=== PATIENT | male | born 1965 | race Caucasian/White ===

== ENCOUNTER 2023-12-04 19:59 | Emergency (ER) | payer BC, SELFPAY ==
[2023-12-04 20:03] VITALS: BP 145/87; PULSE 104; RESP 22; TEMP 36.8; O2SAT 100
[2023-12-04 20:30] LABS: Basophils Percent Auto 0.2 % (0.2-1.2); Eosinophils Absolute Auto 0.3 K/mm3 (0-0.3); Hematocrit 48.1 % (42.0-52.0); Hemoglobin 16.3 g/dL (14.0-18.0); Immature Granulocyte Absolute 0.01 K/mm3 (0.00-0.031); Immature Granulocyte Percent A 0.2 % (0-0.5); Lymphocytes Absolute Auto 1.35 K/mm3 (0.9-3.2); Mean Corpuscular HGB Conc 33.9 g/dl (32-36); Mean Corpuscular Hemoglobin 30.2 pg (26-34); Mean Corpuscular Volume 89.2 fl (80-100); Mean Platelet Volume 9.4 fl (7.4-10.4); Monocytes Absolute Auto 0.8 K/mm3 (0.1-0.6); Monocytes Percent Auto 13.2 % (2.6-8.5); Neutrophils Absolute Auto 3.7 K/mm3 (1.3-6.7); Neutrophils Percent Auto 59.4 % (45.5-73.1); Platelet Count Result 188 k/mm3 (150-375); Red Blood Count 5.39 M/mm3 (4.6-6.20); Red Cell Distribution Width 12.7 % (11.5-14.5); White Blood Count 6.2 K/mm3 (4.5-10.0)
[2023-12-04 20:44] LABS: Alanine Aminotransferase 57 U/L (6-50); Albumin Level 4.5 g/dL (3.5-5.1); Alkaline Phosphatase 84 U/L (38-126); Anion Gap 12 mmol/L (4-12); Aspartate Amino Transferase 35 U/L (17-59); Bilirubin,Total 0.6 mg/dL (0.2-1.3); Blood Urea Nitrogen 18 mg/dL (9-20); CRP 2.2 mg/dL (<1.0); Calcium 9.1 mg/dL (8.4-10.2); Carbon Dioxide 25 mmol/L (22-30); Chloride 100 mmol/L (98-107); Estimated CRCL calculation 61 ml/min; Estimated Glomerular Filt Rate 52; Glucose 124 mg/dL (65-110); Potassium 3.8 mmol/L (3.4-5.0); Sodium 137 mmol/L (137-145)
[2023-12-04 21:13] LABS: Erythrocyte Sedimentation Rate 5 mm/hr (0-20)
[2023-12-05 00:16] VITALS: BP 155/105; PULSE 115; RESP 20; O2SAT 100
--- NOTE | 2023-12-05 02:26 | ED.GENADULT ---
HPI - General Adult General Chief complaint: Extremity Problem,Nontraumatic Stated complaint: RUE swelling, bug bite Time Seen by Provider: 12/05/23 01:39 History of Present Illness HPI narrative: This is a 58-year-old male presenting the ED for possible bug bite. Two days ago while he was going through a door he thought he felt a bite on his arm although he see any insects. After that he started to develop some swelling to his arm that is spreading. He denies fevers chills nausea vomiting diarrhea. He has been taking Benadryl with no relief. Related Data Allergies Allergy/AdvReac Type Severity Reaction Status Date / Time amoxicillin Allergy Hives Verified 12/05/23 02:33 azithromycin Allergy Hives Verified 12/05/23 02:33 prednisone Allergy Hives Verified 12/05/23 02:33 Exam Narrative: APPEARANCE: No apparent distress. Head: atraumatic. EYES: EOMI, NOSE: Atraumatic NECK: Trachea midline RESPIRATORY: No increased rate of breathing CARDIOVASCULAR: RRR, ABDOMINAL: Non-distended MUSCULOSKELETAl: No obvious deformities NEURO: Alert. Moving 4/4 extremities SKIN:: Small scabbed area over the patient's forearm with surrounding edema. Mild erythema. No warmth. No areas of fluctuance or evidence of abscess. PSYCHIATRIC: Normal affect Course Vital Signs Vital signs: Vital Signs Temperature 98.2 F 12/04/23 20:03 Pulse Rate 104 H 12/04/23 20:03 Respiratory Rate 22 H 12/04/23 20:03 Blood Pressure 145/87 H 12/04/23 20:03 Pulse Oximetry 100 12/04/23 20:03 Oxygen Delivery Room Air 12/04/23 20:03 Temperature 98.2 F 12/04/23 20:03 Pulse Rate 96 12/05/23 02:39 Respiratory Rate 20 12/05/23 02:39 Blood Pressure 157/99 H 12/05/23 02:39 Pulse Oximetry 100 12/05/23 02:39 Oxygen Delivery Room Air 12/04/23 20:03 Medical Decision Making [facility] Narrative Medical decision making narrative: -Course: 58-year-old male presenting possible bug bite and swelling to his right arm. Patient given cephalexin and dexamethasone. Patient discharged with close primary care follow-up and return precautions. 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 white count normal. slight increase in CRP. -Interventions: Dexamethasone, Keflex -Shared decision making / Disposition: Discharge -RX: cephalexin 500 mg TID x7 days Vital Signs Vital Signs: Vital Signs Temperature 98.2 F 12/04/23 20:03 Pulse Rate 104 H 12/04/23 20:03 Respiratory Rate 22 H 12/04/23 20:03 Blood Pressure 145/87 H 12/04/23 20:03 Pulse Oximetry 100 12/04/23 20:03 Oxygen Delivery Room Air 12/04/23 20:03 Temperature 98.2 F 12/04/23 20:03 Pulse Rate 96 12/05/23 02:39 Respiratory Rate 20 12/05/23 02:39 Blood Pressure 157/99 H 12/05/23 02:39 Pulse Oximetry 100 12/05/23 02:39 Oxygen Delivery Room Air 12/04/23 20:03 Lab Data 12/04/23 20:24 12/04/23 20:24 Labs: Lab Results 12/04/23 Range/Units 20:24 WBC 6.2 (4.5-10.0) K/mm3 RBC 5.39 (4.6-6.20) M/mm3 Hgb 16.3 (14.0-18.0) g/dL Hct 48.1 (42.0-52.0) % MCV 89.2 (80-100) fl MCH 30.2 (26-34) pg MCHC 33.9 (32-36) g/dl RDW 12.7 (11.5-14.5) % Plt Count 188 (150-375) k/mm3 MPV 9.4 (7.4-10.4) fl Immature Gran % (Auto) 0.2 (0-0.5) % Neut % (Auto) 59.4 (45.5-73.1) % Lymph % (Auto) 22.0 (18.3-44.2) % [place] % (Auto) 13.2 H (2.6-8.5) % Eos % (Auto) 5.0 H (0-4.4) % Baso % (Auto) 0.2 (0.2-1.2) % Lymph # (Auto) 1.35 (0.9-3.2) K/mm3 [place] # (Auto) 0.8 H (0.1-0.6) K/mm3 Eos # (Auto) 0.3 (0-0.3) K/mm3 Baso # (Auto) 0.0 (0.0-0.1) K/mm3 Abs Immat Gran (auto) 0.01 (0.00-0.031) K/mm3 Absolute Neuts (auto) 3.7 (1.3-6.7) K/mm3 Absolute Nucleated RBC 0.000 (0.0-0.012) K/mm3 Nucleate
[2023-12-05] MEDS: Please add drug allergy info to patient profile. 1 EACH XX (02:34)
[2023-12-05] MEDS: dexAMETHasone SOD PHOS INJ 10 MG/ML 1 ML VIAL IM (02:35)
[2023-12-05] MEDS: CEPHALEXIN 500 MG CAPSULE PO (02:35)
[2023-12-05 02:39] VITALS: BP 157/99; PULSE 96; RESP 20; O2SAT 100
--- NOTE | 2023-12-05 02:55 | PC.NURSE ---
Patient states no hives or any allergic reaction after abx administration. Patient states he is ready to go home. ERP notified.
== END 2023-12-05 03:15 | disposition home or self-care (01) ==
PROVIDERS: Emergency Provider Emergency Medicine
DX: L03.113 Cellulitis of right upper limb (principal); I10 Essential (primary) hypertension
CPT/HCPCS: 36415; 80053; 85025; 85652; 86140; 96372; 99283; A9270; J1100